=== PATIENT | male | born 1990 | race Two or more races ===

== ENCOUNTER 2023-12-19 15:04 | Inpatient (IN) | payer OTHER ==
[2023-12-19] MEDS: TRIMETHOBENZAMIDE HCL 200MG/2ML INJ IM ONE (15:39)
[2023-12-19 16:05] VITALS: BMI 19.5
[2023-12-19] MEDS ORDERED: MAG HYDROX/AL HYDROX/SIMETH 30 ML UNIT-DOSE CUP ONE (16:10)
[2023-12-19] MEDS ORDERED: methaDONE HCL 10 MG TABLET (FOR DETOX USE ONLY) PO ONE (16:11)
[2023-12-19] MEDS ORDERED: NALOXONE HCL 0.4 MG/ML VIAL IM PRN (16:12)
[2023-12-19] MEDS ORDERED: MAGNESIUM HYDROX 2400MG/30ML ORAL SUSPENSION 30 ML CUP PO PRN (16:12)
[2023-12-19] MEDS ORDERED: NICOTINE POLACRILEX 2 MG LOZENGE BC PRN (16:12)
[2023-12-19] MEDS ORDERED: guaiFENesin 600 MG TABLET.ER (FP) PO PRN (16:12)
[2023-12-19] MEDS ORDERED: NICOTINE POLACRILEX 2 MG GUM BUC PRN (16:12)
[2023-12-19] MEDS ORDERED: ONDANSETRON *ODT* 4 MG TABLET SL PRN (16:12)
[2023-12-19] MEDS ORDERED: MAG HYDROX/AL HYDROX/SIMETH 30 ML UNIT-DOSE CUP PO PRN (16:12)
[2023-12-19] MEDS ORDERED: POLYETHYLENE GLYCOL (HEALTHYLAX) 3350 17 GM PACKET PO PRN (16:12)
[2023-12-19] MEDS ORDERED: IBUPROFEN 400 MG TABLET (FP) PO PRN (16:12)
[2023-12-19] MEDS ORDERED: ACETAMINOPHEN 325 MG TABLET (FP) PO PRN (16:12)
[2023-12-19] MEDS: MAG HYDROX/AL HYDROX/SIMETH 30 ML UNIT-DOSE CUP PO ONE (16:12)
[2023-12-19] MEDS ORDERED: P-EPHED 60MG/TRIPROLIDI 2.5MG TABLET PO PRN (16:12)
[2023-12-19] MEDS ORDERED: LOPERAMIDE HCL 2 MG CAPSULE PO PRN (16:12)
[2023-12-19] MEDS ORDERED: NALOXONE HCL (KLOXXADO) 8 MG SPRAY NS PRN (16:12)
[2023-12-19] MEDS ORDERED: IBUPROFEN 600 MG TABLET (FP) PO PRN (16:12)
[2023-12-19] MEDS ORDERED: BENZOCAINE/MENTHOL (CHLORASEPTIC ) LOZENGE MM PRN (16:12)
[2023-12-19] MEDS ORDERED: BISMUTH SUBSALICYLATE 524 MG/30 ML PO PRN (16:12)
[2023-12-19] MEDS ORDERED: BENZONATATE 200 MG CAPSULE PO PRN (16:12)
[2023-12-19] MEDS ORDERED: DICYCLOMINE HCL 10 MG CAPSULE PO PRN (16:12)
[2023-12-19] MEDS: methaDONE HCL 10 MG TABLET (FOR DETOX USE ONLY) PO ONE (19:00)
[2023-12-19] MEDS: cloNIDine HCL 0.1 MG TABLET PO PRN (19:01)
[2023-12-19] MEDS: THIAMINE 100 MG TABLET PO SCH (22:18)
[2023-12-19] MEDS: MELATONIN 5 MG TABLETS PO SCH (22:18)
[2023-12-20] MEDS: PRENATAL VITAMINS W/ FOLIC ACID TABLET (FP) PO SCH (10:24)
[2023-12-20 11:55] LABS: POTASSIUM 4.1 mmol/L (3.5-5.1)
[2023-12-20 11:58] LABS: HEMATOCRIT 46.4 % (35.4-49); HEMOGLOBIN 15.7 GM/dL (11.7-16.9); MCH 26.8 pg (25.7-33.7); MCHC 33.8 g/dl (32.0-35.9); MEAN CELL VOLUME 79.4 fl (80-96); MEAN PLT VOLUME 8.8 fl (7.5-11.1); PLATELET COUNT 323 10^3/uL (134-434); RBC 5.85 M/mm3 (4.00-5.60); RDW 13.6 % (11.9-15.9); WHITE BLOOD COUNT 15.4 K/mm3 (4.0-10.0)
[2023-12-20] MEDS: FLU VACCINE (FLULAVAL) PF 60 MCG/0.5 ML SYRINGE 2023-2024 IM ONE (12:04)
[2023-12-20 12:07] LABS: CALCIUM 9.7 mg/dL (8.5-10.1)
[2023-12-20 12:08] LABS: ALBUMIN 3.8 g/dl (3.4-5.0); BLOOD UREA NITROGEN 12.1 mg/dL (7-18)
[2023-12-20 12:10] LABS: TOT PROT 8.1 g/dl (6.4-8.2)
[2023-12-20] MEDS: hydrOXYzine PAMOATE 25 MG CAPSULE (FP) PO PRN (17:51)
[2023-12-20] MEDS: METHOCARBAMOL 500 MG TABLET PO PRN (22:06)
[2023-12-21] MEDS: methaDONE HCL 10 MG TABLET (FOR DETOX USE ONLY) PO ONE (10:20)
[2023-12-22 06:42] VITALS: RESP 17
[2023-12-22 09:55] VITALS: BP 123/67; PULSE 69; TEMP 97.9
== END 2023-12-22 10:54 | disposition home or self-care (01) | DRG 773 ==
LOC: YASAS 15:04 → Y6N 18:05
PROVIDERS: ADMIT Allergy & Immunology; ATTEND Surgery
PROC: HZ2ZZZZ Detoxification Services for Substance Abuse Treatment (ICD-10-PCS; principal; 2023-12-19)
DX: F11.23 Opioid dependence with withdrawal (principal); F14.20 Cocaine dependence, uncomplicated; F12.20 Cannabis dependence, uncomplicated; F17.210 Nicotine dependence, cigarettes, uncomplicated; D72.829 Elevated white blood cell count, unspecified
CPT/HCPCS: 36415; 80053; 80305; 85027; 86780; 90686; 93005; 93010